=== PATIENT | female | born 1980 | race African-American/Black ===

== ENCOUNTER 2016-07-11 07:13 | Emergency (ER) | payer OTHER ==
[2016-07-11] MEDS ORDERED: NS 1,000 ML IV ONE (07:25)
[2016-07-11] MEDS ORDERED: ONDANSETRON HCL 4 MG/2 ML VIAL IV ONE (07:25)
[2016-07-11] MEDS ORDERED: HYDROmorphone 1 MG INJECTION IV ONE ×2 (07:25→08:43)
--- NOTE | 2016-07-11 07:28 | EDPRACDOC ---
- General Information Chief Complaint: Abdominal Pain Stated Complaint: N/V/D, ABD PAIN Time Seen by Provider: 07/11/16 07:24 Home Medications: Home Medications Ciprofloxacin HCl [Cipro] 500 mg PO BID #20 tab 07/11/16 Ondansetron [Zofran Odt] 4 mg PO Q6H PRN #20 tab.rapdis 07/11/16 Oxycodone HCl/Acetaminophen [Percocet 10-325 mg Tablet] 1 each PO Q4 #20 tablet 07/11/16 Allergies/Adverse Reactions: Allergies Allergy/AdvReac Type Severity Reaction Status Date / Time No Known Allergies Allergy Verified 07/11/16 07:32 - History of Present Illness HPI: PATIENT HAS A HX OF TUBAL LIGATION. PRESENTS WITH NAUSEA AND VOMITING X4 DAYS. NO FEVER. SEVERE DIARRHEA. DIFFUSE ABDOMINAL PAIN. Pain Location: Reports: Diffuse Pain Context: Reports: Spontaneous Pain Severity: Mild Pain Quality: Reports: Aching Pain Radiation: Reports: No Radiation Control Method: Reports: BTL Adult Abdominal History: Reports: Abdominal Surgery Female Abdominal History: Reports: Abdominal Surgery Female Associated Signs & Symptoms: Reports: Nausea, Vomiting, Diarrhea Oral Intake: Decreased Urinary Output: Normal ED Past Medical History - History Reviewed Yes Nurses notes reviewed and agree except as marked Travel Outside of [place] in the Last 3 Months?: No - Patient Medical History Cardiac History: Reports: Hypertension Psychological History: Denies: Depression Surgical History: Reports: Other (TUBAL LIGATION) - Social Medical History Smoking Status: Heavy tobacco smoker (5 or more cigarettes/day or daily pipe/ cigar) ETOH: None Substance Abuse: None Lives With: Family Lives In: Home EDM Review of Systems - Review of Systems ROS Negative Except as Marked: Yes All systems reviewed and were negative except as marked Constitutional: No Symptoms Reported. negative: Fever, Chills, Weakness, Fatigue, Loss of Appetite Eyes: No Symptoms Reported. negative: Redness, Blurred Vision, Double Vision, Discharge, Pain, Light Sensitive, Photophobia Ears: No Symptoms Reported. negative: Pain, Hearing Loss, Drainage, Ear Pulling Throat: No Symptoms Reported. negative: Pain, Swelling Nose: No Symptoms Reported. negative: Congestion, Bleeding, Discharge, Injection, Swelling, Deformity, Ecchymosis, Tender, Abrasion, Laceration Mouth: No Symptoms Reported. negative: Pain, Drooling Respiratory: No Symptoms Reported. negative: Cough, Brassy Cough, Barky Cough, Shortness of Breath, Wheezing, Hemoptysis Cardiovascular: No Symptoms Reported. negative: Chest Pain, Palpitations, Syncope, Edema, Orthopnea, PND, Skin Mottling, Cyanosis Gastrointestinal: Diarrhea, Nausea, Pain, Vomiting. negative: Constipation, Formula Intolerance, Melena Genitourinary: No Symptoms Reported. negative: Dysuria, Hematuria, Frequency, Discharge, Bleeding, Testicular Pain, Neurological: No Symptoms Reported. negative: Headache, Dizziness, Seizure, Numbness, Weakness, Speech Difficulty, Gait Difficulty Musculoskeletal: No Symptoms Reported. negative: Neck, Chestwall, Ribs, Back, Shoulder, Arm, Elbow, Forearm, Wrist, Hand, Pelvis, Hip, Femur, Knee, Leg, Ankle , Foot Integumentary: No Symptoms Reported. negative: Itching, Rash, Bruising, Wound Allergic/Immunologic: No Symptoms Reported. negative: Hives, Itching Hematologic: No Symptoms Reported. negative: Lymphadenopathy, Easy Bruising, Easy Bleeding Endocrine: No Symptoms Reported. negative: Weight Gain, Weight Loss Psychiatric: No Symptoms Reported. negative: Anxiety, Depression, Hallucinations, Insomnia, Suicidal - Physical Exam Constitutional: Alert (Awake) Oriented to: Time, Person, Place Last recorded Vital Signs: Last Vital Signs Temp 98.6 F 07/11/16 07:30 Pulse 94 07/11/16 08:34 Resp 18 07/11/16 08:34 BP 107/64 07/11/16 08:34 Pulse Ox 96 07/11/16 08:34 Oxygen Pulse Oxygen Saturation 96 O2 Device Room Air Oxygen Flow Rate Fraction of Inspired Oxygen ( FIO2) - HEENT Head: Normal ( normocephalic) Eye Exam: Normal (PERRL, EOMI, Sclera white) Oropharynx: Normal (Pharynx:Moist without exudate,Gums-no swelling) Tympanic Membrane: Normal ENT EAC: Normal TMJ: Normal Nose: No Symptoms Reported (septum midline) Neck: Normal (FROM, trachea at midline) - Respiratory/Cardiovascular Respiratory: Normal - CTA (BBS clear to auscultation without adventitious sounds ) Cardiovascular: Normal (RRR without murmur, gallop or rub) - GI Auscultation: Normal (NABS) Palpation: Normal (Soft,No rebound or guarding, non distended) Tenderness: Diffuse, Mild Resendiz's Sign: Negative - Musculoskeletal Back: Normal (Non-Tender) Extremities: Normal (Normal tone, Pulses 2+ No cyanosis or edema, FROM) - Integumentary Skin: Normal, Warm, Dry Lymphatics: Normal (no adenopathy) - Neurologic Memory Impaired: Normal Motor Function: Normal (Normal tone, Pulses 2+ No cyanosis or edema, FROM) Cranial Nerve: Normal (CN II-X11 intact sensation, strength 5/5) Cerebellar: Normal Mood Description: Normal Perception: Normal - Results 07/11/16 07:26 07/11/16 07:26 WBC 14.6 xk/uL (3.8-10.8) H 07/11/16 07:26 RBC 4.65 xM/uL (4.20-5.40) 07/11/16 07:26 Hgb 14.6 g/dL (12.0-16.0) 07/11/16 07:26 Hct 44.0 % (36-47) 07/11/16 07:26 MCV 95 fL (81-99) 07/11/16 07:26 MCH 31.5 pg (27-32) 07/11/16 07:26 MCHC 33.3 g/dl (33-36) 07/11/16 07:26 RDW 13.3 % (11.5-14.5) 07/11/16 07:26 Plt Count 333 xk/uL (130-400) 07/11/16 07:26 MPV 8.3 fL (7.4-10.4) 07/11/16 07:26 Neut % (Auto) 93.5 % (45-76) H 07/11/16 07:26 Lymph % (Auto) 5.0 % (17-44) L 07/11/16 07:26 [place] % (Auto) 1.2 % (3-10) L 07/11/16 07:26 Eos % (Auto) 0.0 % (0-5) 07/11/16 07:26 Baso % (Auto) 0.3 % (0-2) 07/11/16 07:26 Absolute Neuts (auto) 13.58 xk/uL (1.7-8.2) H 07/11/16 07:26 Absolute Lymphs (auto) 0.73 xk/uL (0.65-4.75) 07/11/16 07:26 Platelet Estimate Norm (NORMAL) 07/11/16 07:26 RBC Morphology Norm 07/11/16 07:26 Sodium 143 mEq/L (137-146) 07/11/16 07:26 Potassium 3.6 mEq/L (3.5-5.1) 07/11/16 07:26 Chloride 103 mEq/L (98-107) 07/11/16 07:26 Carbon Dioxide 23 mMOL/L (22-33) 07/11/16 07:26 Anion Gap 21 mEq/L (8-16) H 07/11/16 07:26 BUN 12 MG/DL (7-17) 07/11/16 07:26 Creatinine 0.90 MG/DL (0.52-1.04) 07/11/16 07:26 Estimated GFR (MDRD) > 60 mL/min (>=60) 07/11/16 07:26 Glucose 128 MG/DL (70-99) H 07/11/16 07:26 Calculated Osmolality 277 MOs/Kg (270-290) 07/11/16 07:26 Calcium 10.1 MG/DL (8.4-10.2) 07/11/16 07:26 Total Bilirubin 0.8 MG/DL (0.2-1.3) 07/11/16 07:26 AST 39 IU/L (14-36) H 07/11/16 07:26 ALT 45 IU/L (9-52) 07/11/16 07:26 Alkaline Phosphatase 81 IU/L (38-126) 07/11/16 07:26 Total Protein 9.5 G/DL (6.3-8.2) H 07/11/16 07:26 Albumin 5.2 G/DL (3.5-5.0) H 07/11/16 07:26 Lipase 24 U/L (23-300) 07/11/16 07:26 Urine Color Yellow 07/11/16 07:17 Urine Clarity Sl cldy 07/11/16 07:17 Urine pH 5.0 (5.0-8.0) 07/11/16 07:17 Ur Specific [place] 1.025 (1.003-1.035) 07/11/16 07:17 Urine Protein 3+ (NEG/TRACE) H 07/11/16 07:17 Urine Glucose (UA) Trace (NEGATIVE) 07/11/16 07:17 Urine Ketones Neg (NEGATIVE) 07/11/16 07:17 Urine Occult Blood 2+ (NEG/TRACE) H 07/11/16 07:17 Urine Nitrite Neg (NEGATIVE) 07/11/16 07:17 Urine Bilirubin Neg (NEGATIVE) 07/11/16 07:17 Urine Urobilinogen <2.0 MG/DL (0-1) 07/11/16 07:17 Ur Leukocyte Esterase Neg (NEGATIVE) 07/11/16 07:17 Urine RBC 2-5 (0-5) 07/11/16 07:17 Urine WBC 0-2 (0-5) 07/11/16 07:17 Ur Epithelial Cells 3+ 07/11/16 07:17 Urine Bacteria Few (NEG/FEW) 07/11/16 07:17 Urine Mucus Mod (NEG/OCC) H 07/11/16 07:17 Urine Test Neg (NEGATIVE) 07/11/16 07:17 Lab Results 07/11/16 07/11/16 07/11/16 07:26 07:26 07:17 WBC 14.6 H RBC 4.65 Hgb 14.6 Hct 44.0 MCV 95 MCH 31.5 MCHC 33.3 RDW 13.3 Plt Count 333 MPV 8.3 Neut % (Auto) 93.5 H Lymph % (Auto) 5.0 L Gar[place] % (Auto) 1.2 L Eos % (Auto) 0.0 Baso % (Auto) 0.3 Absolute Neuts (auto) 13.58 H Absolute Lymphs (auto) 0.73 Platelet Estimate Norm RBC Morphology Norm Sodium 143 Potassium 3.6 Chloride 103 Carbon Dioxide 23 Anion Gap 21 H BUN 12 Creatinine 0.90 Estimated GFR (MDRD) > 60 Glucose 128 H Calculated Osmolality 277 Calcium 10.1 Total Bilirubin 0.8 AST 39 H ALT 45 Alkaline Phosphatase 81 Total Protein 9.5 H Albumin 5.2 H Lipase 24 Urine Color Yellow Urine Clarity Sl cldy Urine pH 5.0 Ur Specific [place] 1.025 Urine Protein 3+ H Urine Glucose (UA) Trace Urine Ketones Neg Urine Occult Blood 2+ H Urine Nitrite Neg Urine Bilirubin Neg Urine Urobilinogen <2.0 Ur Leukocyte Esterase Neg Urine RBC 2-5 Urine WBC 0-2 Ur Epithelial Cells 3+ Urine Bacteria Few Urine Mucus Mod H Urine Test 07/11/16 07:17 WBC RBC Hgb Hct MCV MCH MCHC RDW Plt Count MPV Neut % (Auto) Lymph % (Auto) [place] % (Auto) Eos % (Auto) Baso % (Auto) Absolute Neuts (auto) Absolute Lymphs (auto) Platelet Estimate RBC Morphology Sodium Potassium Chloride Carbon Dioxide Anion Gap BUN Creatinine Estimated GFR (MDRD) Glucose Calculated Osmolality Calcium Total Bilirubin AST ALT Alkaline Phosphatase Total Protein Albumin Lipase Urine Color Urine Clarity Urine pH Ur Specific [place] Urine Protein Urine Glucose (UA) Urine Ketones Urine Occult Blood Urine Nitrite Urine Bilirubin Urine Urobilinogen Ur Leukocyte Esterase Urine RBC Urine WBC Ur Epithelial Cells Urine Bacteria Urine Mucus Urine Test Neg Decision Time to Discharge: 09:04 - Departure Yes I personally saw and evaluated the patient. Disposition: Home Condition: Good Final Diagnosis: Abdominal pain Nausea and vomiting Qualifiers: Vomiting type: unspecified Vomiting Intractability: non-intractable Qualified Code(s): R11.2 - Nausea with vomiting, unspecified Diarrhea Qualifiers: Diarrhea type: unspecified type Qualified Code(s): R19.7 - Diarrhea, unspecified Instructions: Acute Abdominal Pain (ED), Acute Nausea and Vomiting (ED), Acute Diarrhea (ED) Education/Counseling Given To: Patient Education/Counseling Given Regarding: Diagnosis, Treatment, Prognosis, Follow Up Referrals: None,No Provider [Primary Care Provider] - One Week Ren Rangel MD [Staff Physician] - One Week Prescriptions: Ciprofloxacin HCl [Cipro] 500 mg PO BID #20 tab Ondansetron [Zofran Odt] 4 mg PO Q6H PRN #20 tab.rapdis PRN Reason: Nausea/Vomiting Oxycodone HCl/Acetaminophen [Percocet 10-325 mg Tablet] 1 each PO Q4 #20 tablet
[2016-07-11 07:32] VITALS: TEMP 98.6; BMI 29.3
[2016-07-11 07:48] LABS: BLOOD UREA NITROGEN 12 MG/DL (7-17); CALCIUM 10.1 MG/DL (8.4-10.2); CALCULATED OSMOLALITY 277 MOs/Kg (270-290); CHLORIDE 103 mEq/L (98-107); GLUCOSE 128 MG/DL (70-99); SODIUM LEVEL 143 mEq/L (137-146); TOTAL PROTEIN 9.5 G/DL (6.3-8.2)
[2016-07-11 07:50] LABS: LEUKOCYTES/URINE NEG (NEGATIVE); NITRITE/URINE NEG (NEGATIVE); URINE OCCULT BLOOD 2+ (NEG/TRACE); WBC/URINE 0-2 (0-5)
[2016-07-11 07:51] LABS: AUTOMATED BASOPHIL 0.3 % (0-2); AUTOMATED MONOCYTE 1.2 % (3-10); AUTOMATED NEUTROPHIL 93.5 % (45-76); MPV 8.3 fL (7.4-10.4)
[2016-07-11] MEDS ORDERED: Pharmacy Review for Metformin - IV Contrast Given SCH (08:00)
--- NOTE | 2016-07-11 08:52 | DIRPT ---
CLINICAL DATA: Lower abdominal pain x3 days EXAM: CT ABDOMEN AND PELVIS WITH CONTRAST TECHNIQUE: Multidetector CT imaging of the abdomen and pelvis was performed using the standard protocol following bolus administration of intravenous contrast. CONTRAST: 80 mL Isovue 370 IV COMPARISON: 06/21/2015 and previous FINDINGS: Lower chest: Negative Hepatobiliary: 14 mm enhancing subcapsular lesion in segment 2, and 13 mm lesion in segment 7, nonspecific but present on scans dating back to 12/02/2007 suggesting indolent/benign lesion such as FNH or hemangioma ; MR liver with contrast may be useful for definitive characterization. Pancreas: Negative Spleen: Negative Adrenals/Urinary Tract: Negative Stomach/Bowel: Nondilated. Normal appendix. A few sigmoid diverticula without adjacent inflammatory/edematous change or abscess. Vascular/Lymphatic: Patchy aortoiliac calcifications without aneurysm or stenosis. Portal vein patent. No adenopathy localized. Reproductive: Unremarkable Other: No ascites. No free air. Musculoskeletal: Minimal spurring near the thoracolumbar junction. IMPRESSION: 1. No acute abdominal process. 2. Age-advanced aortoiliac arterial calcifications. 3. Slow enlargement of nonspecific liver lesions since 2007, as discussed above. Electronically Signed By: Caden Carreon M.D. On: 07/11/2016 08:49
[2016-07-11] MEDS ORDERED: CIPROFLOXACIN HCL 500 MG TAB PO ONE (09:07)
[2016-07-11 09:12] VITALS: BP 102/64
[2016-07-11 09:20] VITALS: PULSE 65
== END 2016-07-11 09:18 | disposition home or self-care (01) ==
LOC: ED 07:13
DX: R10.84 Generalized abdominal pain (principal); R11.2 Nausea with vomiting, unspecified; R19.7 Diarrhea, unspecified; I10 Essential (primary) hypertension; F17.200 Nicotine dependence, unspecified, uncomplicated
CPT/HCPCS: 36415; 74177; 80053; 81001; 81025; 83690; 85025; 96361; 96374; 96375; 96376; 99284; A9698; J1170; J2405; J3490